=== PATIENT | female | born 1970 | race Caucasian/White ===

== ENCOUNTER 2018-01-09 07:05 | Day surgery (SDC) | payer BC ==
[~2018-01-09 07:05] MED LIST: ATROPINE 1 MG/10 ML SYRINGE IV; CEFAZOLIN 1 GM INJ; DIPHENHYDRAMINE 50 MG INJ IV; EPHEDrine SULFATE 50 MG/5 ML SYG IV; FENTAnyl 50 MCG/ML VIAL IV; HYDROmorphONE 1 MG/5 ML IV SYRINGE IV; LABETALOL HCL 20MG INJ IV; LACTATED RINGER'S 1,000 ML IV*; ONDANSETRON 4 MG INJ IV; OXYCODONE/ACETAMINOPHEN (5/325) TAB PO; hydrALAzine 20 MG INJ IV; morphine (1 MG/ML) 10ML SYRINGE IV
[2018-01-09] MEDS ORDERED: PROPOFOL 20 ML (08:27)
[2018-01-09] MEDS ORDERED: GLYCOPYRROLATE 0.4 MG INJ (08:27)
[2018-01-09] MEDS ORDERED: MIDAZOLAM 1 MG/ML 2 ML INJ (08:27)
[2018-01-09] MEDS ORDERED: LIDOCAINE 2% (SDV) 5 ML INJ (08:27)
[2018-01-09] MEDS ORDERED: NEOSTIGMINE 3 MG/3 ML SYRINGE (08:27)
[2018-01-09] MEDS ORDERED: ROCURONIUM 50 MG INJ (08:27)
[2018-01-09] MEDS ORDERED: FENTAnyl 50 MCG/ML VIAL (08:28)
[2018-01-09] MEDS ORDERED: DEXAMETHASONE 4 MG/ML 1 ML INJ ×2 (08:29→08:34)
[2018-01-09] MEDS ORDERED: ONDANSETRON 4 MG INJ (09:25)
[2018-01-09] MEDS: MEPERIDINE 25 MG INJ IV (10:15)
[2018-01-09] MEDS: MIDAZOLAM 1 MG/ML 2 ML INJ IV (10:20)
[2018-01-09] MEDS: HYDROmorphONE 1 MG/5 ML IV SYRINGE IV (10:23)
[2018-01-09] MEDS: OXYCODONE/ACETAMINOPHEN (5/325) TAB PO (12:12)
== END 2018-01-09 12:30 | disposition home or self-care (01) ==
LOC: SDS 07:05
DX: N93.9 Abnormal uterine and vaginal bleeding, unspecified (principal)
CPT/HCPCS: 58558; 88305

== ENCOUNTER 2018-03-07 05:48 | Day surgery (SDC) | payer BC ==
[2018-03-07] MEDS ORDERED: FENTAnyl 50 MCG/ML VIAL (07:47)
[2018-03-07] MEDS ORDERED: MIDAZOLAM 1 MG/ML 2 ML INJ ×2 (07:47)
== END 2018-03-07 11:30 | disposition home or self-care (01) ==
LOC: GIL 05:48
DX: K29.50 Unspecified chronic gastritis without bleeding (principal)
CPT/HCPCS: 43239; 84703; 88305; 88312